=== PATIENT | male | born 1950 | race African-American/Black ===

== ENCOUNTER 2018-07-16 06:04 | Day surgery (SDC) | payer MEDICAID ==
[~2018-07-16] VITALS: Ht 191.8 cm; Wt 104.3 kg
[~2018-07-16 06:04] MED LIST: ALBU05 NEB; DOCU-138 PO
[2018-07-16] MEDS ORDERED: METHYLENE BLUE 50 MG/10 ML AMP IV ONE (06:52)
[2018-07-16] MEDS ORDERED: BUPIVACAINE HCL/PF 0.5% (5MG/ML) 10ML ONE (06:53)
[2018-07-16] MEDS ORDERED: BACITRACIN 50,000 UNITS/VIAL ONE (06:53)
[2018-07-16] MEDS ORDERED: NORMAL SALINE 0.9% 10 ML SYR ONE (06:53)
[2018-07-16] MEDS ORDERED: LACTATED RINGERS 1,000 ML IV SCH (07:00)
[2018-07-16] MEDS ORDERED: MIDAZOLAM HCL 2 MG/2 ML VIAL ONE (07:40)
[2018-07-16] MEDS ORDERED: GLYCOPYRROLATE 0.2 MG/ML 2ML VIAL ONE (07:40)
[2018-07-16] MEDS ORDERED: LIDOCAINE HCL/PF 1% 10 MG/ML 5ML VIAL ONE (07:40)
[2018-07-16] MEDS ORDERED: PROPOFOL 200MG/20ML VIAL IV ONE (07:40)
[2018-07-16] MEDS ORDERED: SUCCINYLCHOLINE CHLORIDE 200MG/10ML IV ONE (07:40)
[2018-07-16] MEDS ORDERED: FENTANYL CITRATE/PF 50MCG/ML 2ML VIAL ONE (07:40)
[2018-07-16] MEDS ORDERED: PHENYLEPHRINE HCL 10 MG/ML 1ML (IV VIAL) IV ONE (07:41)
[2018-07-16] MEDS ORDERED: EPHEDRINE SULFATE 50MG/ML VIAL ONE (07:41)
[2018-07-16] MEDS ORDERED: SODIUM CHLORIDE 0.9% 10ML VIAL ONE (07:41)
[2018-07-16] MEDS ORDERED: CEFAZOLIN SODIUM 1000MG/VIAL ONE (07:41)
[2018-07-16] MEDS ORDERED: ONDANSETRON HCL 4MG/2ML INJ ONE (07:41)
[2018-07-16] MEDS ORDERED: METOCLOPRAMIDE HCL 10MG/2ML VIAL ONE (07:41)
[2018-07-16] MEDS ORDERED: SODIUM CHLORIDE 0.9% 1,000 ML IV ONE (08:21)
[2018-07-16] MEDS ORDERED: ONDANSETRON HCL 4MG/2ML INJ IV PRN (08:30)
[2018-07-16] MEDS ORDERED: MEPERIDINE HCL/PF 25MG/ML CPJ IV PRN (08:30)
[2018-07-16] MEDS ORDERED: HYDROMORPHONE HCL/PF 2MG/ML CPJ IV PRN (08:30)
[2018-07-16] MEDS ORDERED: MORPHINE SULFATE 2 MG/ML CPJ (NOT FOR IM USE) IV PRN (08:30)
[2018-07-16] MEDS ORDERED: AMLO5TAB88 PO (09:10)
[2018-07-16] MEDS ORDERED: ACET-2708 PO (09:10)
[2018-07-16] MEDS ORDERED: ASPI-1159 PO (09:10)
[2018-07-16] MEDS ORDERED: CEPH500C2 PO (09:10)
== END 2018-07-16 10:10 | disposition home or self-care (01) ==
LOC: OR 06:04
PROVIDERS: ATTEND Surgery
DX: K60.3 Anal fistula (principal); I10 Essential (primary) hypertension; K21.9 Gastro-esophageal reflux disease without esophagitis; M06.9 Rheumatoid arthritis, unspecified; J45.909 Unspecified asthma, uncomplicated; Z86.73 Personal history of transient ischemic attack (TIA), and cerebral infarction without residual deficits; Z79.82 Long term (current) use of aspirin; Z79.899 Other long term (current) drug therapy
CPT/HCPCS: 46270; J0330; J0690; J2250; J2370; J2405; J2704; J2765; J3010; J3490; Q9968